=== PATIENT | male | born 2000 | race Caucasian/White ===

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

== ENCOUNTER 2023-08-31 22:39 | Emergency (ER) | payer BC ==
[2023-08-31] MEDS ORDERED: Sodium Chloride 0.9% 10 ML Syringe FLUSH PRN (22:59)
[2023-08-31 23:10] LABS: BASOPHILS ABSOLUTE AUTO 0.06 K/uL (0.00-0.20); BASOPHILS PERCENT AUTO 1.2 % (0.0-2.0); EOSINOPHILS PERCENT AUTO 4.1 % (0.0-5.0); HEMATOCRIT 42.1 % (39.0-49.0); HEMOGLOBIN 14.6 g/dL (13.1-16.8); LYMPHOCYTES ABSOLUTE AUTO 1.94 K/uL (0.50-3.50); LYMPHOCYTES PERCENT AUTO 39.8 % (10.0-50.0); MEAN CORPUSCULAR HEMOGLOBIN 28.5 pg (28.2-33.3); MEAN CORPUSCULAR HGB CONC 34.7 g/dL (31.7-36.0); MEAN CORPUSCULAR VOLUME 82.1 fL (84.0-98.0); MONOCYTES ABSOLUTE AUTO 0.71 K/uL (0.00-1.00); MONOCYTES PERCENT AUTO 14.5 % (2.0-14.0); NEUTROPHILS ABSOLUTE AUTO 1.97 K/uL (1.40-7.00); NEUTROPHILS PERCENT AUTO 40.4 % (45.0-80.0); PLATELET COUNT,PLT 301 K/uL (150-350); RED BLOOD CELL COUNT 5.13 M/uL (4.33-5.41); WHITE BLOOD CELL COUNT,WBC 4.9 K/uL (4.0-10.2)
[2023-08-31 23:12] LABS: APPEARANCE,URINE CLEAR; BILIRUBIN,URINE NEGATIVE (NEGATIVE); COLOR,URINE YELLOW; GLUCOSE,URINE NEGATIVE (NEGATIVE); KETONES,URINE TRACE mg/dL (NEGATIVE); LEUKOCYTE ESTERASE,URINE NEGATIVE (NEGATIVE); NITRITE,URINE NEGATIVE (NEGATIVE); OCCULT BLOOD,URINE NEGATIVE (NEGATIVE); PH,URINE 6.5 (5.0-9.0); PROTEIN,URINE NEGATIVE (NEGATIVE); UROBILINOGEN,URINE 0.2 E.U./dL (0.2-1.0)
[2023-08-31] MEDS ORDERED: Iopamidol 612 MG/ML 100 ML Bottle IVPUSH ONE (23:15)
[2023-08-31 23:31] LABS: ALANINE AMINOTRANSFERASE,ALT 22 U/L (12-78); ALBUMIN 4.1 g/dL (3.4-5.0); ALKALINE PHOSPHATASE 83 IU/L (46-116); ASPARTATE AMNIOTRANSFERASE,AST 21 U/L (15-37); BILIRUBIN TOTAL 0.7 mg/dL (0.2-1.0); BLOOD UREA NITROGEN,BUN 10 mg/dL (7-18); CALCIUM 9.1 mg/dL (8.5-10.1); CARBON DIOXIDE,CO2 29.8 mmol/L (21.0-32.0); CHLORIDE,CL 103 mmol/L (98-107); CREATININE 0.75 mg/dL (0.51-1.17); GLUCOSE RANDOM 100 mg/dL (70-99); POTASSIUM,K 3.1 mmol/L (3.5-5.1); PROTEIN TOTAL,TP 7.8 g/dL (6.4-8.2); SODIUM,NA 144 mmol/L (136-145)
[2023-08-31 23:43] LABS: ANION GAP 14.3 meq/L (7-15); ESTIMATED GFR 132 mL/min (>=60)
[2023-09-01] MEDS ORDERED: Potassium Chloride 20 MEQ Tab.ER PO ONE
== END 2023-09-01 00:30 | disposition home or self-care (01) ==
LOC: LL.ED 22:39
DX: K58.9 Irritable bowel syndrome, unspecified (principal); E87.6 Hypokalemia; F17.210 Nicotine dependence, cigarettes, uncomplicated; Z91.011 Allergy to milk products
CPT/HCPCS: 36415; 74177; 80053; 81003; 82272; 83605; 85025; 99284; A9270-GY; J3490; Q9967

== ENCOUNTER 2023-09-30 08:49 | Day surgery (SDC) | payer BC ==
[~2023-09-30 08:49] MED LIST: Midazolam 1 MG/ML 2 ML SDV ONE; Propofol 200 MG/20 ML SDV ONE
[2023-09-30] MEDS ORDERED: Sodium Chloride 0.9% 10 ML Syringe FLUSH PRN (09:00)
[2023-09-30] MEDS ORDERED: Lactated Ringers 1,000 ML IV SCH (09:00)
[2023-09-30] MEDS ORDERED: Lidocaine 2% 5 ML SDV ONE (10:25)
[2023-09-30] MEDS ORDERED: Glycopyrrolate 0.2 MG/ML SDV IVPUSH ONE (10:25)
[2023-09-30] MEDS ORDERED: Ketamine 500 mg/10 ML MDV IVPUSH ONE (10:25)
[2023-09-30] MEDS ORDERED: Midazolam 1 MG/ML 2 ML SDV ONE (10:36)
[2023-09-30] MEDS ORDERED: Ketamine 500 mg/10 ML MDV ONE (10:36)
== END 2023-09-30 14:00 | disposition home or self-care (01) ==
LOC: LL.SDS 08:49
PROVIDERS: ATTEND Surgery
DX: K29.50 Unspecified chronic gastritis without bleeding (principal); K20.90 Esophagitis, unspecified without bleeding; K44.9 Diaphragmatic hernia without obstruction or gangrene; K64.9 Unspecified hemorrhoids; F41.9 Anxiety disorder, unspecified; Z87.891 Personal history of nicotine dependence
CPT/HCPCS: 00813; 43239; 45380; J2250; J2704; J3490; J7120

== ENCOUNTER 2024-07-28 22:24 | Emergency (ER) | payer BC ==
[2024-07-28] MEDS: Orphenadrine 60 MG/2 ML Inj IM ONE (23:04)
[2024-07-28] MEDS: Ketorolac 30 MG/ML SDV IM ONE (23:04)
[2024-07-28] MEDS: traMADol 50 MG Tab PO ONE (23:05)
[2024-07-28] MEDS: Take Home: predniSONE 20 MG, 4 Tab Pack PO ONE (23:09)
[2024-07-28] MEDS: Take Home: Orphenadrine 100 MG Tab.ER, 4 Tab Pack PO ONE (23:09)
== END 2024-07-28 23:18 | disposition home or self-care (01) ==
LOC: LL.ED 22:24
DX: M54.9 Dorsalgia, unspecified (principal); Z79.899 Other long term (current) drug therapy; Z91.011 Allergy to milk products
CPT/HCPCS: 96372; 99283; A9270-GY; J1885; J2360

== ENCOUNTER 2024-10-16 04:31 | Emergency (ER) | payer OTHER, BC | END 2024-10-16 05:01 | LOC: LL.ED 04:31 | DX: H57.89 Other specified disorders of eye and adnexa (principal); Z91.011 Allergy to milk products; Z79.899 Other long term (current) drug therapy | CPT/HCPCS: 99283 ==